=== PATIENT | male | born 1975 | race Caucasian/White ===

== ENCOUNTER 2016-05-08 14:31 | Emergency (ER) | payer BC, OTHER ==
[~2016-05-08] VITALS: Ht 172.7 cm; Wt 81.7 kg
[2016-05-08 15:03] LABS: ABSOLUTE NEUTROPHILS 7.1 thou/uL (1.4-8.2); BASOPHILS 0.4 % (0.0-2.0); EOSINOPHILS 1.4 % (0.0-3.0); HEMATOCRIT 47.2 % (42.0-52.0); HEMOGLOBIN 16.7 gm/dL (14.0-18.0); LYMPHOCYTES 23.2 % (24.0-44.0); MCH 31.2 pg (26.0-34.0); MCHC 35.5 g/dL (28.0-37.0); MCV 87.9 fL (80.0-100.0); MONOCYTES 7.3 % (1.0-8.0); PLATELET COUNT 280 thou/uL (150-400); POLYS 67.7 % (36.0-66.0); RBC 5.37 mil/uL (4.50-6.00); RDW 13.7 % (10.5-14.5); WBC 10.6 thou/uL (4.0-11.0)
[2016-05-08 15:07] LABS: MANUAL DIFF NO
[2016-05-08 15:11] LABS: CALCIUM 9.1 mg/dL (8.5-10.1); CREATININE 1.1 mg/dL (0.6-1.3)
[2016-05-08 15:16] LABS: TOTAL BILIRUBIN 0.5 mg/dL (<0.1-1.0); TOTAL PROTEIN 7.3 g/dL (6.4-8.2)
[2016-05-08] MEDS ORDERED: TORADOL 10 MG T10 MG PO (16:43)
[2016-05-08] MEDS ORDERED: NORCO 10-325 T1 EAC1 PO (16:43)
[2016-05-08] MEDS ORDERED: ONDANSETRON HCL4 M2 PO (16:43)
[2016-05-08 16:46] LABS: URINE BILIRUBIN NEGATIVE (Negative); URINE BLOOD 3+ (Negative); URINE COLOR YELLOW; URINE GLUCOSE-RANDOM* NEGATIVE (Negative); URINE KETONES NEGATIVE (Negative); URINE LEUKOCYTES-REFLEX NEGATIVE (Negative); URINE PROTEIN (DIPSTICK) NEGATIVE (Negative)
[2016-05-08 17:05] LABS: SQUAMOUS None Seen /LPF (0-3); URINE WBC-REFLEX None Seen /HPF (0-5)
[2016-05-08 17:06] LABS: CASTS None Seen /LPF (None Seen); CRYSTALS None Seen /LPF (None Seen)
== END 2016-05-08 17:08 | disposition home or self-care (01) ==
LOC: ER 14:31
PROVIDERS: Emergency Medicine
DX: N20.0 Calculus of kidney (principal)

== ENCOUNTER 2016-05-18 14:54 | Emergency (ER) | payer BC, OTHER ==
[~2016-05-18] VITALS: Ht 172.7 cm; Wt 81.7 kg
[~2016-05-18 14:54] MED LIST: NORCO 10-325 T1 EAC1 PO; ONDANSETRON HCL4 M2 PO; TORADOL 10 MG T10 MG PO
[2016-05-18 15:10] LABS: URINE BILIRUBIN NEGATIVE (Negative); URINE BLOOD 3+ (Negative); URINE COLOR YELLOW; URINE GLUCOSE-RANDOM* NEGATIVE (Negative); URINE KETONES NEGATIVE (Negative); URINE LEUKOCYTES-REFLEX NEGATIVE (Negative); URINE PROTEIN (DIPSTICK) NEGATIVE (Negative); URINE SPECIFIC GRAVITY 1.025 (1.003-1.035); URINE UROBILINOGEN 0.2 E.U./dl (0.2-1.0)
[2016-05-18 15:16] LABS: CASTS None Seen /LPF (None Seen); CRYSTALS None Seen /LPF (None Seen); SQUAMOUS 0-3 Few /LPF (0-3); URINE WBC-REFLEX 0-5 Rare /HPF (0-5)
[2016-05-18 15:29] LABS: BASOPHILS 0.2 % (0.0-2.0); EOSINOPHILS 0.5 % (0.0-3.0); HEMATOCRIT 44.3 % (42.0-52.0); HEMOGLOBIN 15.2 gm/dL (14.0-18.0); LYMPHOCYTES 15.1 % (24.0-44.0); MCH 30.4 pg (26.0-34.0); MCHC 34.4 g/dL (28.0-37.0); MCV 88.4 fL (80.0-100.0); MONOCYTES 7.5 % (1.0-8.0); PLATELET COUNT 304 thou/uL (150-400); POLYS 76.7 % (36.0-66.0); RBC 5.01 mil/uL (4.50-6.00); RDW 13.3 % (10.5-14.5); WBC 15.7 thou/uL (4.0-11.0)
[2016-05-18 15:31] LABS: MANUAL DIFF NO
[2016-05-18 15:36] LABS: CALCIUM 9.9 mg/dL (8.5-10.1); CREATININE 1.3 mg/dL (0.6-1.3)
[2016-05-18 15:41] LABS: ALBUMIN 4.1 g/dL (3.4-5.0); TOTAL BILIRUBIN 0.4 mg/dL (<0.1-1.0); TOTAL PROTEIN 7.2 g/dL (6.4-8.2)
[2016-05-18] MEDS ORDERED: PHENERGAN 25 MG25 M1 PO (17:11)
[2016-05-18] MEDS ORDERED: HYDROCODONE-AP1 EAC6 PO (17:11)
[2016-05-18] MEDS ORDERED: FLOMAX0.4 MG PO (17:11)
[2016-05-18 17:22] VITALS: BP 134/86
== END 2016-05-18 17:25 | disposition home or self-care (01) ==
LOC: ER 14:54
PROVIDERS: Physician Assistant
DX: N20.0 Calculus of kidney (principal); F17.210 Nicotine dependence, cigarettes, uncomplicated